=== PATIENT | female | born 1955 | race Caucasian/White ===

== ENCOUNTER 2021-04-21 14:57 | Emergency (ER) | payer MEDICARE, OTHER ==
[~2021-04-21] VITALS: Ht 157.5 cm; Wt 83.0 kg
[~2021-04-21 14:57] MED LIST: ESCI20TA PO; HYDR100T26 MT; LOSA1TAB40 MT; OXYC-105 MT; PANT20TA17 PO
[2021-04-21 15:48] LABS: BASOPHILS % 0.8 % (0.0-2.0); EOSINOPHILS % 3.3 % (0.0-5.0); HEMATOCRIT. 26.1 % (36.0-48.0); HEMOGLOBIN. 8.8 g/dL (12.0-16.0); LYMPHOCYTES % 17.6 % (20.0-50.0); MEAN CORPUSCULAR HEMOGLOBIN 30.5 pg (28.0-32.0); MEAN PLATELET VOLUME 7.1 fl (7.4-10.4); NEUTROPHILS % 66.3 % (40.0-76.0); PLATELET 113 x1000/uL (130-400); RED CELL DISTRIBUTION WIDTH 15.8 % (11.6-14.6)
[2021-04-21 15:55] LABS: CHLORIDE 108 mEq/L (98-107)
[2021-04-21] MEDS ORDERED: LIDOCAINE HCL/EPINEPHRINE 1%-EPI 1:100,000 10 ML VIAL IJ ONE (16:00)
[2021-04-21] MEDS ORDERED: TETANUS, DIPHTHERIA, PERTUSSIS VAC/PF 0.5ML (>7YR OLD) IM ONE (16:00)
[2021-04-21] MEDS ORDERED: LIDOCAINE HCL/EPINEPHRINE 1%-EPI 1:100,000 20 ML VIAL INFIL SCH (16:15)
[2021-04-21] MEDS ORDERED: ACETAMINOPHEN WITH CODEINE 300/30MG TABLET PO ONE (17:30)
[2021-04-21] MEDS ORDERED: MELO15TA13 MT (18:30)
[2021-04-21] MEDS ORDERED: CEPH500C2 MT (18:31)
[2021-04-21 19:20] VITALS: BP 150/88
== END 2021-04-21 19:20 | disposition home or self-care (01) ==
LOC: ER 15:23
DX: S01.01XA Laceration without foreign body of scalp, initial encounter (principal); I49.9 Cardiac arrhythmia, unspecified; G93.89 Other specified disorders of brain; W18.30XA Fall on same level, unspecified, initial encounter; Y93.89 Activity, other specified; Y92.89 Other specified places as the place of occurrence of the external cause; Y99.8 Other external cause status
CPT/HCPCS: 36415; 70450; 73030; 80053; 85025; 90471; 90715; 93005; 99285; J3490

== ENCOUNTER 2024-03-07 12:47 | Inpatient (IN) | payer MEDICARE, MEDICAID ==
[~2024-03-07] VITALS: Ht 162.6 cm; Wt 64.0 kg
[~2024-03-07 12:47] MED LIST changes: +CEPH500C2 MT; +MELO15TA13 MT
[2024-03-07 13:39] LABS: CHLORIDE 113 mEq/L (98-107); POTASSIUM 3.8 mEq/L (3.5-5.1); SODIUM 145 mEq/L (136-145)
[2024-03-07 13:40] LABS: CARBON DIOXIDE 22 mEq/L (21-32)
[2024-03-07 13:41] LABS: CALCIUM 8.8 mg/dL (8.7-10.4)
[2024-03-07 13:44] LABS: INR 1.1; PROTHROMBIN TIME 12.5 sec (9.6-11.0)
[2024-03-07 13:45] LABS: CREATININE 0.8 mg/dL (0.6-1.0); GLUCOSE 101 mg/dL (70-105); UREA NITROGEN BLOOD 15 mg/dL (9-23)
[2024-03-07 13:47] LABS: ALANINE AMINOTRANSFERASE 13 IU/L (10-49); ALBUMIN 4.3 g/dL (3.2-4.8); ASPARTATE AMINOTRANSFERASE 40 IU/L (<34); BASOPHILS % 0.7 % (0.0-2.0); DIFFERENTIAL COMMENT 0; HEMATOCRIT. 22.3 % (36.0-48.0); LYMPHOCYTES % 31.2 % (20.0-50.0); MEAN CORPUSCULAR HEMOGLOBIN 24.7 pg (28.0-32.0); MEAN CORPUSCULAR HGB CONC 30.4 g/dL (31.0-37.0); MEAN CORPUSCULAR VOLUME 81.2 fL (81.0-99.0); MEAN PLATELET VOLUME 7.6 fl (7.4-10.4); MONOCYTES % 9.5 % (2.0-8.0); NEUTROPHILS % 57.6 % (40.0-76.0); PLATELET 128 x1000/uL (130-400); RED BLOOD CELL COUNT 2.75 mill/uL (4.2-5.4); RED CELL DISTRIBUTION WIDTH 17.9 % (11.6-14.6); WHITE BLOOD COUNT 3.2 x1000/uL (4.5-11.0)
[2024-03-07 13:48] LABS: BILIRUBIN TOTAL 0.7 mg/dL (0.1-1.0); PROTEIN TOTAL 7.6 g/dL (6.0-8.3)
[2024-03-07 13:57] LABS: HEMOGLOBIN. 6.8 g/dL (12.0-16.0)
[2024-03-07 14:09] LABS: TROPONIN I HIGH SENSITIVITY 44 ng/L (3.0-34)
[2024-03-07] MEDS: SODIUM CHLORIDE 0.9% 1,000 ML IV SCH (16:45)
[2024-03-07] MEDS: SODIUM CHLORIDE 0.9% 1,000 ML IV ONE (16:47)
[2024-03-07] MEDS: HALOPERIDOL LACTATE 5MG/ML VIAL IM ONE (16:59)
[2024-03-07] MEDS: LORAZEPAM 2MG/ML INJ IV ONE (17:56)
[2024-03-07 18:08] LABS: CLARITY URINE CLEAR (CLEAR); COLOR URINE YELLOW (YELLOW); GLUCOSE URINE NEGATIVE (NEGATIVE); KETONES URINE NEGATIVE (NEGATIVE); LEUKOCYTE ESTERASE URINE NEGATIVE (NEGATIVE); NITRITE URINE NEGATIVE (NEGATIVE); OCCULT BLOOD URINE 3+ (NEGATIVE); PH URINE 7.5 (4.5-8.0); PROTEIN URINE NEGATIVE (NEGATIVE); SPECIFIC GRAVITY URINE 1.006 (1.005-1.030)
[2024-03-07 18:28] LABS: BACTERIA URINE TRACE; SQUAMOUS EPITHELIAL CELL URINE FEW /lpf (RARE/1+); WBC URINE 0-2 /hpf (0-2)
[2024-03-07] MEDS: PANTOPRAZOLE SODIUM 40 MG/VIAL IV SCH (18:30)
[2024-03-07] MEDS: CEFTRIAXONE 1GM/50ML 50 ML IV ONE (18:41)
[2024-03-07 19:16] LABS: HEMATOCRIT 27.2 % (36.0-48.0); HEMOGLOBIN 8.3 g/dL (12.0-16.0); MEAN CORPUSCULAR HEMOGLOBIN 25.6 pg (28.0-32.0); MEAN CORPUSCULAR HGB CONC 30.5 g/dL (31.0-37.0); MEAN CORPUSCULAR VOLUME 83.9 fL (81.0-99.0); PLATELET 103 x1000/uL (130-400); RED BLOOD CELL COUNT 3.24 mill/uL (4.2-5.4); RED CELL DISTRIBUTION WIDTH 18.1 % (11.6-14.6); WHITE BLOOD COUNT 3.5 x1000/uL (4.5-11.0)
[2024-03-07 19:26] LABS: AMMONIA 111 uMol/L (<32)
[2024-03-07] MEDS: LACTULOSE ENEMA 1,000ML BOTTLE PR STA (20:20)
[2024-03-07] MEDS ORDERED: IOHEXOL-300 100 ML BOTTLE ONE (23:20)
[2024-03-07 23:30] VITALS: BP 177/94; PULSE 79; RESP 17; TEMP 98.3
[2024-03-08] VITALS (11 sets, daily range): BP systolic 113–177; BP diastolic 60–105; PULSE 45–91; RESP 14–20; TEMP 97.3–98.3
[2024-03-08 00:58] LABS: HEMATOCRIT 31.1 % (36.0-48.0); HEMOGLOBIN 10.2 g/dL (12.0-16.0)
[2024-03-08] MEDS: LACTULOSE 20G/30ML UDC PO SCH (05:12)
[2024-03-08 05:50] LABS: HEMATOCRIT 33.1 % (36.0-48.0); HEMOGLOBIN 10.5 g/dL (12.0-16.0)
[2024-03-08 06:01] LABS: IRON 150 ug/dL (50-170)
[2024-03-08 06:03] LABS: AMMONIA 40 uMol/L (<32)
[2024-03-08 06:04] LABS: TOTAL IRON BINDING CAPACITY 328 ug/dl (250-425)
[2024-03-08 06:47] LABS: HEPATITIS B SURFACE ANTIGEN NEGATIVE (Negative)
[2024-03-08 07:07] LABS: HEPATITIS A AB IGM NEGATIVE (Negative)
[2024-03-08 07:08] LABS: HEPATITIS B CORE AB IGM NEGATIVE (Negative); HEPATITIS C AB REACTIVE (Pos) (Negative)
[2024-03-08] MEDS ORDERED: CEFTRIAXONE 1GM/50ML 50 ML IV SCH (09:00)
[2024-03-08] MEDS: CEFTRIAXONE 1GM/50ML 50 ML IV SCH (11:05)
[2024-03-08] MEDS ORDERED: LORAZEPAM 2MG/ML INJ IV NR (11:30)
[2024-03-08 11:44] LABS: HEMATOCRIT 29.4 % (36.0-48.0); HEMOGLOBIN 9.4 g/dL (12.0-16.0)
[2024-03-08] MEDS ORDERED: NALOXONE HCL 0.4MG/ML VIAL IV PRN (12:00)
[2024-03-08] MEDS: HYDROCODONE/ACETAMINOPHEN 5/325MG TABLET PO PRN ×2 (12:20→23:08)
[2024-03-08] MEDS: THIAMINE HCL 100 MG in SODIUM CHLORIDE 0.9% 49 ML IV SCH (14:51)
[2024-03-08 18:50] LABS: HEMATOCRIT 31.6 % (36.0-48.0)
[2024-03-09] VITALS (33 sets, daily range): BP systolic 106–176; BP diastolic 60–110; PULSE 42–107; RESP 14–24; TEMP 97.1–98
[2024-03-09 02:02] LABS: HEMATOCRIT 30.6 % (36.0-48.0); HEMOGLOBIN 9.3 g/dL (12.0-16.0)
[2024-03-09 07:07] LABS: HEMATOCRIT 28.9 % (36.0-48.0); HEMOGLOBIN 9.2 g/dL (12.0-16.0)
[2024-03-09 19:06] LABS: HEMATOCRIT 34.9 % (36.0-48.0); HEMOGLOBIN 10.7 g/dL (12.0-16.0)
[2024-03-09] MEDS ORDERED: IPRATROPIUM/ALBUTEROL 0.5-3(2.5)MG/3ML NEB HHN PRN (22:30)
[2024-03-10] VITALS (12 sets, daily range): BP systolic 125–165; BP diastolic 65–101; PULSE 51–87; RESP 13–27; TEMP 97.3–98.3
[2024-03-10] MEDS: HYDROCODONE/ACETAMINOPHEN 5/325MG TABLET PO PRN (00:11)
[2024-03-10 06:56] LABS: BASOPHILS % 0.4 % (0.0-2.0); EOSINOPHILS % 4.3 % (0.0-5.0); HEMATOCRIT. 30.1 % (36.0-48.0); HEMOGLOBIN. 9.6 g/dL (12.0-16.0); LYMPHOCYTES % 38.5 % (20.0-50.0); MEAN CORPUSCULAR HGB CONC 31.9 g/dL (31.0-37.0); MEAN CORPUSCULAR VOLUME 81.3 fL (81.0-99.0); MEAN PLATELET VOLUME 7.6 fl (7.4-10.4); MONOCYTES % 6.8 % (2.0-8.0); PLATELET 97 x1000/uL (130-400); RED BLOOD CELL COUNT 3.71 mill/uL (4.2-5.4); RED CELL DISTRIBUTION WIDTH 18.9 % (11.6-14.6); WHITE BLOOD COUNT 3.4 x1000/uL (4.5-11.0)
[2024-03-10 07:01] LABS: AMMONIA 71 uMol/L (<32)
[2024-03-10 07:18] LABS: CARBON DIOXIDE 22 mEq/L (21-32); CHLORIDE 115 mEq/L (98-107); SODIUM 145 mEq/L (136-145)
[2024-03-10 07:24] LABS: CREATININE 0.7 mg/dL (0.6-1.0)
[2024-03-10 07:25] LABS: GLUCOSE 74 mg/dL (70-105); UREA NITROGEN BLOOD 8 mg/dL (9-23)
[2024-03-10 07:27] LABS: BILIRUBIN DIRECT 0.4 mg/dL (<=3.0); BILIRUBIN TOTAL 0.8 mg/dL (0.1-1.0)
[2024-03-10 07:37] LABS: VITAMIN B12 SERUM 874 pg/mL (211-911)
[2024-03-10 07:38] LABS: FERRITIN 17 ng/mL (10-291)
[2024-03-10 07:46] LABS: POTASSIUM 2.8 mEq/L (3.5-5.1)
[2024-03-10] MEDS: HYDROCODONE/ACETAMINOPHEN 10/325MG TABLET PO PRN (15:04)
[2024-03-10] MEDS: KCL 20MEQ/100ML PREMIX 100 ML IV SCH (16:00)
[2024-03-10] MEDS: DEXTROSE 5% WATER 1,000 ML IV SCH (21:07)
[2024-03-11] VITALS (12 sets, daily range): BP systolic 119–152; BP diastolic 68–107; PULSE 56–90; RESP 13–21; TEMP 97.3–98.6
[2024-03-11 06:37] LABS: INR 1.3; PROTHROMBIN TIME 14.4 sec (9.6-11.0)
[2024-03-11 06:42] LABS: CHLORIDE 114 mEq/L (98-107); POTASSIUM 3.9 mEq/L (3.5-5.1); SODIUM 144 mEq/L (136-145)
[2024-03-11 06:43] LABS: CALCIUM 7.9 mg/dL (8.7-10.4); CARBON DIOXIDE 22 mEq/L (21-32)
[2024-03-11 06:47] LABS: BASOPHILS % 0.4 % (0.0-2.0); EOSINOPHILS % 4.2 % (0.0-5.0); HEMATOCRIT. 29.8 % (36.0-48.0); HEMOGLOBIN. 9.3 g/dL (12.0-16.0); MEAN CORPUSCULAR HEMOGLOBIN 25.8 pg (28.0-32.0); MEAN CORPUSCULAR HGB CONC 31.4 g/dL (31.0-37.0); MEAN CORPUSCULAR VOLUME 82.2 fL (81.0-99.0); MEAN PLATELET VOLUME 7.4 fl (7.4-10.4); MONOCYTES % 8.7 % (2.0-8.0); NEUTROPHILS % 52.7 % (40.0-76.0); PLATELET 94 x1000/uL (130-400); RED BLOOD CELL COUNT 3.62 mill/uL (4.2-5.4); RED CELL DISTRIBUTION WIDTH 18.8 % (11.6-14.6); WHITE BLOOD COUNT 3.5 x1000/uL (4.5-11.0)
[2024-03-11 06:48] LABS: CREATININE 0.7 mg/dL (0.6-1.0); GLUCOSE 86 mg/dL (70-105); UREA NITROGEN BLOOD 10 mg/dL (9-23)
[2024-03-11] MEDS ORDERED: SIMETHICONE 40 MG/0.6 ML 15ML ONE (11:07)
[2024-03-11] MEDS ORDERED: PROPOFOL 200MG/20ML VIAL IV ONE (11:13)
[2024-03-11] MEDS ORDERED: LIDOCAINE HCL/PF 1% 10 MG/ML 5ML VIAL ONE (11:13)
[2024-03-11] MEDS ORDERED: LABETALOL 5MG/ML SYR 20 MG/4 ML SYRINGE IV PRN (12:00)
[2024-03-11] MEDS ORDERED: MEPERIDINE HCL/PF 25MG/ML CPJ IV PRN (12:00)
[2024-03-11] MEDS ORDERED: HYDROMORPHONE HCL/PF 2MG/ML CPJ IV PRN (12:00)
[2024-03-11] MEDS ORDERED: ONDANSETRON HCL 4MG/2ML INJ IV PRN (12:00)
[2024-03-12] VITALS (15 sets, daily range): BP systolic 94–180; BP diastolic 49–104; PULSE 61–100; RESP 15–20; TEMP 97.8–98.4
[2024-03-12] MEDS: BARIUM SULFATE 176 GM SUSP.RECON ONE (09:25)
[2024-03-12] MEDS: SIMETHICONE/SOD BICARB/CIT AC 1 EACH GRAN.EF.PK ONE (09:35)
[2024-03-12] MEDS: HYDRALAZINE HCL 100MG TABLET PO SCH (13:55)
[2024-03-12] MEDS: HYDROCHLOROTHIAZIDE 12.5MG CAPSULE PO SCH (13:57)
[2024-03-12] MEDS: LOSARTAN 100 MG TABLET PO SCH (13:57)
[2024-03-12] MEDS ORDERED: THIA100T72 MT (14:36)
[2024-03-12] MEDS ORDERED: LACT10SO7 PO (14:36)
[2024-03-13] VITALS (12 sets, daily range): BP systolic 108–163; BP diastolic 67–99; PULSE 74–90; RESP 14–17; TEMP 97.2–98; O2SAT 99
== END 2024-03-13 21:30 | disposition home or self-care (01) | DRG 377 ==
LOC: ER 12:59 → EDBEDREQTM 15:01 → EDBEDREQ 15:01 → 5EST 17:23 → EDBEDREQSVC 17:27 → EDBEDREQTM 17:27 → EDBEDREQSVC 20:44
PROVIDERS: ADMIT Internal Medicine; ATTEND Internal Medicine
PROC: 0DB78ZX Excision of Stomach, Pylorus, Via Natural or Artificial Opening Endoscopic, Diagnostic (ICD-10-PCS; principal; 2024-03-11)
DX: K29.71 Gastritis, unspecified, with bleeding (principal); G92.8 Other toxic encephalopathy; I13.0 Hypertensive heart and chronic kidney disease with heart failure and stage 1 through stage 4 chronic kidney disease, or unspecified chronic kidney disease; K76.6 Portal hypertension; D62 Acute posthemorrhagic anemia; F11.20 Opioid dependence, uncomplicated; K74.60 Unspecified cirrhosis of liver; B19.20 Unspecified viral hepatitis C without hepatic coma; R26.9 Unspecified abnormalities of gait and mobility; I50.9 Heart failure, unspecified; K76.82 Hepatic encephalopathy; K52.9 Noninfective gastroenteritis and colitis, unspecified; N30.90 Cystitis, unspecified without hematuria; F17.210 Nicotine dependence, cigarettes, uncomplicated; J44.9 Chronic obstructive pulmonary disease, unspecified; K22.2 Esophageal obstruction; R55 Syncope and collapse; Z20.822 Contact with and (suspected) exposure to COVID-19; K22.4 Dyskinesia of esophagus; R26.89 Other abnormalities of gait and mobility; N18.9 Chronic kidney disease, unspecified; R29.6 Repeated falls; Z88.2 Allergy status to sulfonamides
CPT/HCPCS: 36415; 71045; 74177; 74220; 76700; 80048; 80053; 81003; 82140; 82247; 82248; 82270; 82607; 82728; 82746; 83520; 83540; 83550; 83605; 84132; 84145; 84484; 85014; 85018; 85025; 85027; 85044; 86705; 86709; 86850; 86900; 86920; 87340; 87426; 88305; 92610; 93005; 93306; 97162; 97166; 99291; A6261; C9113; J0696; J1630; J2060; J2704; J3411; J3480; J3490; J7030; J7070; J7517; P9016; Q9967